=== PATIENT | male | born 1965 | race Two or more races ===

== ENCOUNTER 2020-12-23 16:43 | Emergency (ER) | payer SELFPAY ==
[2020-12-23] MEDS ORDERED: Lidocaine 1% PF 2 ML SDV INJECT ONE (16:46)
[2020-12-23] MEDS ORDERED: Diphtheria,Pertussis(Acell),Tetanus Vaccine 0.5 ML Syringe IM ONE (16:46)
--- NOTE | 2020-12-23 17:05 | EDM.PDOC ---
ED HPI GENERAL MEDICAL PROBLEM - General Stated Complaint: NAIL IN LEG Time Seen by Provider: 12/23/20 16:45 Source of Information: Reports: Patient History Limitations: Reports: No Limitations - History of Present Illness INITIAL COMMENTS - FREE TEXT/NARRATIVE: HISTORY AND PHYSICAL: History of present illness: Patient is a 55-year-old male who presents to the emergency room with complaints of foreign body in the right lower extremity. 30 minutes prior to arrival he was using a nail gun when he struck his right anterior thigh, resulting in a nail being stuck in the leg. Patient is ambulatory denies any numbness, tingling or other extremity involvement. Patient denies any fever, chills, headache, change in vision, syncope or near syncope. Denies any chest pain, back pain, shortness of breath or cough. Denies any GI or symptoms. No recent travel or sick contacts. Review of systems: As per history of present illness and below otherwise all systems reviewed and negative. Past medical history: As per history of present illness and as reviewed below otherwise noncontributory. Surgical history: As per history of present illness and as reviewed below otherwise noncontributory. Social history: See social history for further information Family history: As per history of present illness and as reviewed below otherwise noncontributory. Physical exam: General: Well developed and well nourished. Alert and orientated x 3. Nontoxic in appearance and in no acute distress. Vital signs are stable and have been reviewed by me. Nursing notes were reviewed. HEENT: Atraumatic, normocephalic, pupils equal and reactive bilaterally, negative for conjunctival pallor or scleral icterus, mucous membranes moist, TMs normal bilaterally, throat clear, neck supple, nontender, trachea midline. No drooling or trismus noted. No meningeal signs. No hot potato voice noted. Lungs: Clear to auscultation bilaterally. No wheezes, rales, or rhonchi. Chest nontender. Normal work of breathing, no accessory muscles used. Heart: S1S2, regular rate and rhythm without overt murmur, gallops, or rubs. No JVD. No peripheral edema Abdomen: Soft, nondistended, nontender. Normoactive bowel sounds. Negative for masses or costovertebral tenderness. Skin: Intact, warm, dry. No lesions or rashes noted. Hematologic: No petechiae or purpra. Mucosa appropriate color and normal nail bed color and refill. Extremities: Atraumatic, moves all extremities per self without difficulty or deficits, negative for cords or calf pain. Neurovascular unremarkable. Neuro: Awake, alert, oriented. Cranial nerves II through XII unremarkable. Cerebellum unremarkable. Motor and sensory unremarkable throughout. Exam nonfocal. Psychiatric: Mood and affect are appropriate. Normal thought process. Answering questions appropriately. Please note that the patient was seen and evaluated during the 2019 SARS-CoV-2 novel coronavirus pandemic period. Community viral transmission is ongoing at time of this encounter and the emergency department is operating under pandemic response procedures. Medical Decision Making: X-ray shows a linear metal foreign body consistent with the given history of a nail is present at the level of the lower thigh. This extends anterior to posterior through the anterior and posterior cortex of the distal femur without a discrete fracture plane. 1745: Spoke with Dr Patel, orthopedic provider, about this case. He was able to review images and instructed that it would be safe to pull the nail out. We will watch the patient after nail removal to make sure there is no significant swelling or bleeding. Will place patient on Keflex. Please see procedure note. Usual and customary procedures were followed for nail removal. Patient tolerated well. Patient was watched for 2 hours after nail removal and he has no compartment swelling, bleeding or post procedure complications. Positive CMS with strong pedal and pretibial pulses. He states it feels "good". We discussed in great detail signs and symptoms that would prompt them to return to the Emergency Department. I have talked with the patient about today's findings, in addition to providing specific details for plan of care. Reassessment at the time of disposition demonstrates that the patient is in no acute distress. The patient is stable for discharge, counseling was provided. Medication, follow up and supportive care measures were reviewed and discussed. Voices understanding and is agreeable to plan of care. Denies any further questions or concerns at this time. Diagnostics: X-ray Therapeutics: Dion wrap, Ancef 1gm IM, Ewing, Zofran, Tdap Prescription: Keflex, Ewing, Zofran Impression: Nail puncture injury Plan: 1. You were evaluated today on an emergent basis. The nail was removed from your leg. Keep the site clean and dry. Wash with mild soap and water twice daily. Take the antibiotic as prescribed. It is important that you watch the skin and soft tissue closely for signs of infection, bleeding or postprocedure complications. If your symptoms should worsen, new symptoms develop or any of the signs and symptoms we discussed should arise please return to the emergency room or call 911 (if needed). 2. You can alternate Tylenol and ibuprofen as needed for pain and fever management. 3. We encourage you to follow up with your primary care provider and/or recommended specialist in the next few days for re-evaluation and further care/management. Definitive disposition and diagnosis as appropriate pending reevaluation and review of above. R leg Pain Score (Numeric/FACES): 4 - Related Data Allergies Allergy/AdvReac Type Severity Reaction Status Date / Time No Known Allergies Allergy Verified 12/23/20 16:51 Home Meds: Home Meds cephALEXin [Keflex] 500 mg PO BID 7 Days #14 cap 12/23/20 [Rx] metFORMIN [Glucophage XR] 1,000 mg PO BID 12/23/20 [History] Past Medical History HEENT History: Reports: None Cardiovascular History: Reports: None Respiratory History: Reports: None Gastrointestinal History: Reports: None Genitourinary History: Reports: None Musculoskeletal History: Reports: None Neurological History: Reports: None Psychiatric History: Reports: None Endocrine/Metabolic History: Reports: Diabetes, Type II Hematologic History: Reports: None Immunologic History: Reports: None Oncologic (Cancer) History: Reports: None Dermatologic History: Reports: None - Infectious Disease History Infectious Disease History: Reports: None - Past Surgical History Head Surgeries/Procedures: Reports: None Endocrine Surgical History: Reports: None Social & Family History - Family History Family Medical History: No Pertinent Family History - Tobacco Use Tobacco Use Status *Q: Never Tobacco User - Caffeine Use Caffeine Use: Reports: Tea - Recreational Drug Use Recreational Drug Use: No Review of Systems - Review of Systems Review Of Systems: Comprehensive ROS is negative, except as noted in HPI. ED EXAM, GENERAL - Physical Exam Exam: See Below (See dicatition) ED TRAUMA EXTREMITY PROCEDURES - Foreign Body Removal Indication:: Nail gun shot a nail into the right anterior lateral distal thigh. Imbedded into thigh/femur. Consent Obtained: Patient Performing Doctor:: Silvia Greene Anesthesia Type: Local Complications:: No Comments:: Site was cleansed with iodine, usual and customary procedures followed. Consent obtained. A genaro clamp was used to grasp the nail under the head after site was anesthetized with 1% lidocaine. Gentle force was used to remove the nail, pulling straight up. No bleeding after removal. Will watch for 1-2 hours to monitor for post procedure bleeding/swelling/complications. Course - Vital Signs Last Recorded V/S: Last Vital Signs Temp 98.7 F 12/23/20 18:16 Pulse 104 H 12/23/20 18:16 Resp 18 12/23/20 18:16 BP 136/89 12/23/20 18:16 Pulse Ox 93 L 12/23/20 18:16 - Orders/Labs/Meds Orders: Active Orders 24 hr Category Date Time Status Vaccine to be Administered/Admin Charge [RC] ASDIRECTED Care 12/23/20 16:46 Active DME for Discharge [COMM] Stat Oth 12/23/20 18:04 Ordered Meds: Medications Discontinued Medications Generic Name Dose Route Start Last Admin Trade Name Freq PRN Reason Stop Dose Admin Hydrocodone Bitart/Acetaminophen 1 tab 12/23/20 17:53 12/23/20 18:09 Acetaminophen/Hydrocodone 325-5 Mg Tab PO 12/23/20 17:54 1 tab ONETIME ONE Administration Cefazolin Sodium 1 gm 12/23/20 17:52 12/23/20 18:09 Cefazolin 1 Gm Vial IM 12/23/20 17:53 1 gm ONETIME ONE Administration Diphtheria/Tetanus/Acell Pertussis 0.5 ml 12/23/20 16:46 12/23/20 17:23 Diphtheria,Pertussis(Acell),Tetanus Vaccine 0.5 Ml Syringe IM 12/23/20 16:47 0.5 ml .ONCE ONE Administration Lidocaine HCl 4 ml 12/23/20 16:46 12/23/20 17:23 Lidocaine 1% Pf 2 Ml Sdv INJECT 12/23/20 16:47 4 ml ONETIME ONE Administration Ondansetron HCl 4 mg 12/23/20 17:53 12/23/20 18:09 Ondansetron 4 Mg Tab.Dis PO 12/23/20 17:54 4 mg ONETIME ONE Administration Departure - Departure Time of Disposition: 19:03 Disposition: Home, Self-Care 01 Clinical Impression: Injury by nail gun Qualifiers: Encounter type: initial encounter Qualified Code(s): W29.4XXA - Contact with nail gun, initial encounter - Discharge Information Prescriptions: cephALEXin [Keflex] 500 mg PO BID 7 Days #14 cap Referrals: PCP,Not In Area [Primary Care Provider] - Additional Instructions: The following information is given to patients seen in the emergency department who are being discharged to home. This information is to outline your options for follow-up care. We provide all patients seen in our emergency department with a follow-up referral. The need for follow-up, as well as the timing and circumstances, are variable depending upon the specifics of your emergency department visit. If you don't have a primary care physician on staff, we will provide you with a referral. We always advise you to contact your personal physician following an emergency department visit to inform them of the circumstance of the visit and for follow-up with them and/or the need for any referrals to a consulting specialist. The emergency department will also refer you to a specialist when appropriate. This referral assures that you have the opportunity for follow-up care with a specialist. All of these measure are taken in an effort to provide you with optimal care, which includes your follow-up. Under all circumstances we always encourage you to contact your private physician who remains a resource for coordinating your care. When calling for follow-up care, please make the office aware that this follow-up is from your recent emergency room visit. If for any reason you are refused follow-up, please contact the [facility] Emergency Department at and asked to speak to the emergency department charge nurse. [facility] [address] [place] [id number] [address] [address] La siguiente informacin se proporciona a los pacientes atendidos en el departamento de emergencias que estn siendo dados de sahra a adrian hogar. Esta informacin es para describir kyler opciones para la atencin de seguimiento. Proporcionamos a todos los pacientes atendidos en nuestro departamento de emergencias kerry derivacin de seguimiento. La necesidad de seguimiento, as yessi el momento y las circunstancias, varan segn los detalles de adrian visita al departamento de emergencias. Si no tiene un mdico de atencin primaria en el personal, le proporcionaremos kerry referencia. Siempre le recomendamos que se ponga en contacto con adrian mdico personal despus de kerry visita al servicio de urgencias para informarle de las circunstancias de la visita y para realizar un seguimiento con l y / o la necesidad de derivaciones a un especialista consultor. El departamento de emergencias tambin lo derivar a un especialista cuando sea apropiado. Esta remisin le asegura que tiene la oportunidad de recibir atencin de seguimiento con un especialista. Todas estas medidas se moose en un esfuerzo por brindarle kerry atencin ptima, que incluye adrian seguimiento. En todas las circunstancias, siempre lo alentamos a que se comunique con adrian mdico privado, quien sigue siendo un recurso para coordinar adrian atencin. Cuando llame para recibir atencin de seguimiento, informe al consultorio que daniela seguimiento es de adrian visita reciente a la kilo de emergencias. Si por alguna razn se le niega el seguimiento, comunquese con el Departamento de Emergencias del [facility] al y solicite hablar con la enfermera a cargo del departamento de emergencias. Thank you for choosing the [facility] emergency department in [place] for your medical needs today. It was a pleasure caring for you. Today you were seen in the emergency department for nail gun injury. 1. You were evaluated today on an emergent basis. The nail was removed from your leg. Keep the site clean and dry. Wash with mild soap and water twice daily. Take the antibiotic as prescribed. It is important that you watch the skin and soft tissue closely for signs of infection, bleeding or postprocedure complications. If your symptoms should worsen, new symptoms develop or any of the signs and symptoms we discussed should arise please return to the emergency room or call 911 (if needed). 2. You can alternate Tylenol and ibuprofen as needed for pain and fever management. 3. We encourage you to follow up with your primary care provider and/or rec ommended specialist in the next few days for re-evaluation and further care/management. 1. Usted fue evaluado hoy de forma emergente. Le quitaron la ua de la ana. Mantenga el sitio limpio y seco. Lvese con agua y jabn suave dos veces al da. [place] el antibitico segn lo prescrito. Es importante que observe de cerca la piel y los tejidos blandos en busca de signos de infeccin, sangrado o c omplicaciones posteriores al procedimiento. Si kyler sntomas empeoran, aparecen nuevos sntomas o si surge alguno de los signos y sntomas que discutimos, regrese a la kilo de emergencias o llame al 911 (si es necesario). 2. Puede alternar Tylenol e ibuprofeno segn sea necesario para controlar el dolor y la fiebre. 3. Le recomendamos que jose luis un seguimiento con adrian proveedor de atencin primaria y / o especialista recomendado en los prximos adame para kerry reevaluacin y atencin / manejo adicional. Sepsis Event Note (ED) - Evaluation Sepsis Screening Result: No Definite Risk - Focused Exam Vital Signs: Vital Signs Temp Pulse Resp BP Pulse Ox 12/23/20 18:16 98.7 F 104 H 18 136/89 93 L 12/23/20 16:52 98.5 F 83 16 97 - My Orders Last 24 Hours: My Active Orders 12/23/20 16:46 Vaccine to be Administered/Admin Charge [RC] ASDIRECTED 12/23/20 18:04 DME for Discharge [COMM] Stat - Assessment/Plan Last 24 Hours: My Active Orders 12/23/20 16:46 Vaccine to be Administered/Admin Charge [RC] ASDIRECTED 12/23/20 18:04 DME for Discharge [COMM] Stat
--- NOTE | 2020-12-23 17:49 | CR ---
Indication: Nail in lower thigh Technique: Two views Comparison: None Findings: A linear metal foreign body consistent with the given history of a nail is present at the level of the lower thigh. This extends anterior to posterior through the anterior and posterior cortex of the distal femur without a discrete fracture plane. Dictated by Ravi Maciel MD @ 12/23/2020 5:48:41 PM (Electronically Signed)
[2020-12-23] MEDS ORDERED: ceFAZolin 1 GM Vial IM ONE (17:52)
[2020-12-23] MEDS ORDERED: Acetaminophen/HYDROcodone 325-5 MG Tab PO ONE (17:53)
[2020-12-23] MEDS ORDERED: Ondansetron 4 MG Tab.DIS PO ONE (17:53)
== END 2020-12-23 19:25 | disposition home or self-care (01) ==
LOC: MW.ED 16:43
DX: S71.141A Puncture wound with foreign body, right thigh, initial encounter (principal); E11.9 Type 2 diabetes mellitus without complications; Z23 Encounter for immunization; Z79.84 Long term (current) use of oral hypoglycemic drugs; W29.4XXA Contact with nail gun, initial encounter
CPT/HCPCS: 73560; 90471; 90715; 96372; 99283; A9270; J0690